=== PATIENT | female | born 1950 | race Caucasian/White ===

== ENCOUNTER → 2017-02-22 | Outpatient (CLI) | payer OTHER ==
--- NOTE | 2017-02-22 14:03 | KCIC ---
Three views left shoulder Indication: Chronic left shoulder pain Findings: No fracture is identified. The acromioclavicular and glenohumeral joints are maintained. There is no evidence for dislocation. Visualized right lung apex is clear. Soft tissues are within normal limits. Impression: Normal exam of the Left shoulder. Electronically signed by: Juan Ramon Marshall MD (02/22/2017 2:00 PM)
--- NOTE | 2017-02-22 14:09 | KCIC ---
Two views right hip Indication: Chronic right hip pain Findings: There is no fracture or dislocation. The right hip joint is well-maintained. Visualized portions of the pelvis are unremarkable. No soft tissue abnormalities identified. Impression: Unremarkable exam of the right hip. Electronically signed by: Juan Ramon Marshall MD (02/22/2017 2:06 PM)
--- NOTE | 2017-02-22 14:45 | KCIC ---
AP and lateral lumbar spine Indication: Chronic low back pain FINDINGS: There is grade 1 degenerative anterolisthesis of L5 on S1. Alignment is otherwise within normal limits. There is no compression fracture or deformity. There is degenerative disc height loss at multiple levels. Facet arthropathy is noted at L5-S1. SI joints are open and corticated. IMPRESSION: Degenerative disc and facet disease at L5-S1 with grade 1 degenerative anterolisthesis. Electronically signed by: Juan Ramon Marshall MD (02/22/2017 2:42 PM)
== END | disposition home or self-care (01) ==
LOC: KCIC 12:55
PROVIDERS: ATTEND Nurse Practitioner Family
DX: M51.37 Other intervertebral disc degeneration, lumbosacral region (principal); G89.29 Other chronic pain; M25.551 Pain in right hip; M25.512 Pain in left shoulder
CPT/HCPCS: 72100; 73030; 73502

== ENCOUNTER → 2017-11-09 | Outpatient (CLI) | payer MEDICARE, OTHER | END | disposition home or self-care (01) | LOC: KCIC DEXA 10:00 | DX: Z13.820 Encounter for screening for osteoporosis (principal); M85.88 Other specified disorders of bone density and structure, other site; Z78.0 Asymptomatic menopausal state | CPT/HCPCS: 77080 ==

== ENCOUNTER → 2018-07-01 | Outpatient (CLI) | payer MEDICARE, OTHER ==
--- NOTE | 2018-07-01 17:53 | KCIC ---
Bilateral digital screening mammograms with 3-D tomosynthesis: Reason for examination: Routine screening. Comparison is made to previous studies dated 06/24/2017 and 05/19/2016. Bilateral mammograms in CC and oblique projections were obtained with 2-D imaging and 3-D tomosynthesis imaging on a Siemens Inspiration unit and reviewed on the workstation. Interpretation was made with the benefit of CAD. The skin and nipples show no abnormalities. No abnormal axillary lymph nodes are seen. The breast parenchyma shows scattered fatty and fibroglandular density. (Breast density: Category B.) There are no dominant masses, suspicious calcifications or architectural distortion. Benign calcifications are present. Impression: No evidence of malignancy. Recommend routine screening. BI-RAD Category 2: Benign. "Our facility is accredited by the [employer] Mammography [employer]." This patient's information has been entered into a reminder system for the patient to be notified with the results of her examination and a target date for the next mammogram. Electronically signed by: Maricruz Crabtree MD (07/01/2018 5:50 PM) [id number]
== END | disposition home or self-care (01) ==
LOC: KCIC MAMMO 14:03
PROVIDERS: ATTEND Family Medicine
DX: Z12.31 Encounter for screening mammogram for malignant neoplasm of breast (principal)
CPT/HCPCS: 77063; 77067

== ENCOUNTER → 2018-11-21 | Outpatient (CLI) | payer MEDICARE, OTHER ==
--- NOTE | 2018-11-21 15:21 | KCIC ---
Examination: 3 views of the bilateral knees HISTORY: History of chronic bilateral knee pain COMPARISON: None available FINDINGS: There is moderate joint space loss identified in the medial, lateral, patellofemoral compartments of the bilateral knees. There is no acute fracture identified. No significant knee joint effusion identified. IMPRESSION: Moderate tricompartmental degenerative changes bilateral knees. Electronically signed by: Francis Sharif MD (11/21/2018 3:18 PM) [id number]
== END | disposition home or self-care (01) ==
LOC: KCIC 13:05
PROVIDERS: ATTEND Family Medicine
DX: M17.0 Bilateral primary osteoarthritis of knee (principal)
CPT/HCPCS: 73564

== ENCOUNTER → 2019-07-04 | Outpatient (CLI) | payer MEDICARE, OTHER ==
--- NOTE | 2019-07-04 10:34 | KCIC ---
Bilateral digital screening mammograms with 3-D tomosynthesis: Reason for examination: Routine screening. Comparison is made to previous studies dated 07/01/2018 and 06/24/2017. Bilateral mammograms in CC and oblique projections were obtained with 2-D imaging and 3-D tomosynthesis imaging on a Siemens Inspiration unit and reviewed on the workstation. Interpretation was made with the benefit of CAD. The skin and nipples show no abnormalities. No abnormal axillary lymph nodes are seen. The breast parenchyma shows scattered fatty and fibroglandular density. (Breast density: Category B.) There are no dominant masses, suspicious calcifications or architectural distortion. Benign calcifications are present. Impression: No evidence of malignancy. Recommend routine screening. BI-RAD Category 2: Benign. "Our facility is accredited by the [employer] Mammography Program." This patient's information has been entered into a reminder system for the patient to be notified with the results of her examination and a target date for the next mammogram. Electronically signed by: Maricruz Crabtree MD (07/04/2019 10:32 AM) [id number]
== END | disposition home or self-care (01) ==
LOC: KCIC MAMMO 09:37
PROVIDERS: ATTEND Nurse Practitioner Family
DX: Z12.31 Encounter for screening mammogram for malignant neoplasm of breast (principal); N64.89 Other specified disorders of breast
CPT/HCPCS: 77063; 77067

== ENCOUNTER → 2020-04-09 | Outpatient (CLI) | payer MEDICARE, OTHER ==
--- NOTE | 2020-04-09 11:45 | KCIC ---
EXAM: 1. LUMBAR SPINE 3 VIEWS. 2. FRONTAL PELVIS WITH ONE VIEW LEFT HIP. HISTORY: Low back and left hip pain. Left lower extremity radiculopathy. COMPARISON: None. FINDINGS: There is a minimal lumbar levocurvature. There is grade 1 anterolisthesis at L5-S1 from facet osteoarthritis. There is slight retrolisthesis at L3-4. Degenerative disc disease is mild from L3 through S1. Vertebral body heights are maintained, and no fractures are identified. No fractures are appreciated within the pelvis or left hip. The joint spaces of both hips are maintained. There is mildly decreased femoral head/neck offset anteriorly on the left. Densities bilaterally in the pelvis may reflect postsurgical changes such as with tubal ligation. IMPRESSION: 1. Grade 1 anterolisthesis at L5-S1. Slight retrolisthesis at L3-4. 2. Mild degenerative disc disease from L3 through S1. 3. Correlate for femoroacetabular impingement anteriorly on the left. Electronically signed by: Digna Soni MD (04/09/2020 11:42 AM) [id number]
== END | disposition home or self-care (01) ==
LOC: KCIC 10:51
PROVIDERS: ATTEND Nurse Practitioner Gerontology
DX: M43.17 Spondylolisthesis, lumbosacral region (principal); M25.552 Pain in left hip; M51.37 Other intervertebral disc degeneration, lumbosacral region; M43.8X6 Other specified deforming dorsopathies, lumbar region
CPT/HCPCS: 72100; 73501

== ENCOUNTER → 2020-07-15 | Outpatient (CLI) | payer MEDICARE, OTHER ==
--- NOTE | 2020-07-15 17:44 | KCIC ---
Bilateral digital screening mammograms and tomosynthesis Reason for examination: Routine screening. Family history of breast cancer the patient's grandmother. Comparison is made to previous study dated July 04, 2019 and priors Routine CC and MLO digital views obtained. Interpretation was made with the benefit of CAD. The skin and nipples show no abnormalities. No abnormal lymph nodes are seen. The breast parenchyma is scattered fibroglandular elements. (Breast density: Category B.) There are no suspicious masses, suspicious calcifications or architectural distortions. Benign calcifications. Left anterior subareolar breast nodularity is stable, benign. Mild glandular nodularity asymmetry of the right outer breast on the CC view with no underlying masses on tomosynthesis images and no correlate on MLO view is stable to prior studies, benign. At the right upper outer breast 10:30 position 9 cm from the nipple there is a subcutaneous 3 mm oval low-density nodule new from prior studies on CC tomosynthesis image 34 and MLO tomosynthesis image 6 which is inferior to a pre-existing stable skin lesion. Impression: Right upper outer breast 10:30 position 9 cm from the nipple demonstrates a subcutaneous oval 3 mm mass new from prior studies as described above. Further evaluation with right breast ultrasound is advised. BI-RADS Category 0: Incomplete examination. "Our facility is accredited by the [employer] Mammography Program." This patient's information has been entered into a reminder system for the patient to be notified with the results of her examination and a target date for the next mammogram. Electronically signed by: Rafa Ibrahim MD (07/15/2020 5:40 PM) [id number]
== END ==
LOC: KCIC MAMMO 14:54
PROVIDERS: ATTEND Nurse Practitioner Gerontology
DX: Z12.31 Encounter for screening mammogram for malignant neoplasm of breast (principal); N64.89 Other specified disorders of breast
CPT/HCPCS: 77063; 77067